=== PATIENT | female | born 1980 | race Caucasian/White ===

== ENCOUNTER 2016-06-23 09:19 | Emergency (ER) | payer OTHER, MEDICAID ==
[2016-06-23 10:43] VITALS: BP 112/59
--- NOTE | 2016-06-23 11:12 | UC ---
Throat Pain/Nasal [place] HPI - HPI Summary HPI Summary: pt presents with c/o sore throat, generalized malaise that has been "on and off " X 2 months. - History of Current Complaint Chief Complaint: UCRespiratory Stated Complaint: THROAT,CHILLS,ACHY Time Seen by Provider: 06/23/16 10:19 Hx Obtained From: Patient Hx Last Menstrual Period: 06/02/16 ?: No Onset/Duration: Gradual Onset, Lasting Weeks - over the last 2 months intermittent Pain Intensity: 2 Pain Scale Used: 0-10 Numeric Associated Signs & Symptoms: Positive: Dysphagia Related History: T & A - in her "20's" - Epiglottits Risk Factors Epiglottis Risk Factors: Negative - Allergies/Home Medications Allergies/Adverse Reactions: Allergies Allergy/AdvReac Type Severity Reaction Status Date / Time Sulfa Antibiotics Allergy Intermediate Hives Verified 06/23/16 10:04 Home Medications: Home Medications Biglycate Chelate 2 tab PO DAILY 06/23/16 [History] Copper (Iud) [Paragard IUD] 1 unit IU 06/23/16 [History] Ibuprofen TAB* [Advil TAB*] 200 mg PO Q6H PRN 06/23/16 [History Confirmed ] Multiple Vitamin [Multivitamins] 1 cap PO DAILY 06/23/16 [History Confirmed ] PMH/Surg Hx/FS Hx/Imm Hx Previously Healthy: Yes - Surgical History Surgical History: Yes Surgery Procedure, Year, and Place: TONSILLECTOMY. KNEE SURGERY - Family History Known Family History: Positive: Other - Positive [facility] for sore throat. - Social History Lives: With Family Alcohol Use: None Substance Use Type: None Smoking Status (MU): Never Smoked Tobacco - Immunization History Most Recent Influenza Vaccination: NO Review of Systems Constitutional: Fever, Chills, Fatigue Skin: Negative Eyes: Negative ENT: Sore Throat Respiratory: Negative Cardiovascular: Negative Gastrointestinal: Negative Genitourinary: Negative Motor: Negative Neurovascular: Negative Musculoskeletal: Myalgia Neurological: Negative Psychological: Negative All Other Systems Reviewed And Are Negative: Yes Physical Exam Triage Information Reviewed: Yes Appearance: Ill-Appearing - pale Vital Signs: Initial Vital Signs Temp 99.2 F 06/23/16 10:06 Pulse 95 06/23/16 10:06 Resp 18 06/23/16 10:06 BP 112/59 06/23/16 10:06 Pulse Ox 100 06/23/16 10:06 Vital Signs Reviewed: Yes ENT: Positive: Pharyngeal erythema - 2-3 vesicles on right side pharynx Neck exam: Normal Respiratory Exam: Normal Cardiovascular Exam: Normal Musculoskeletal Exam: Normal Neurological Exam: Normal Psychological Exam: Normal Skin Exam: Normal Throat Pain/Nasal Course/Dx - Course Course Of Treatment: I discussed with th ept the results of her rapid strep test and discussed that despite having a T& A years ago that she still is able to have strep throat. Pt verbalized understanding and agreed to plan of care. - Differential Dx/Diagnosis Differential Diagnosis/HQI/PQRI: Influenza, Pharyngitis Provider Diagnoses: Strep Throat Discharge - Discharge Plan Condition: Stable Disposition: HOME Prescriptions: Penicillin VK TAB 500 MG(NF) [Penicillin VK 500 mg Tab(NF)] 500 mg PO Q8H #30 tab Patient Education Materials: Strep Throat (ED) Referrals: [facility] [Outside] Additional Instructions: Please follow up with your PCP or return to clinic as needed.
== END 2016-06-23 10:48 | disposition home or self-care (01) ==
LOC: UCCORT 09:19
DX: J02.0 Streptococcal pharyngitis (principal); Z88.2 Allergy status to sulfonamides
CPT/HCPCS: 87651; 99202; G0463